=== PATIENT | male | born 2000 ===

== ENCOUNTER → 2021-11-18 | Outpatient (REF) | LOC: M PLAIMG 15:09 | PROVIDERS: ATTEND Internal Medicine | DX: M54.9 Dorsalgia, unspecified (principal) ==

== ENCOUNTER → 2022-01-05 | Outpatient (REF) | LOC: M PLAIMG 13:55 | PROVIDERS: ATTEND Internal Medicine | DX: R06.02 Shortness of breath (principal) ==